=== PATIENT | male | born 1955 | race Caucasian/White ===

== ENCOUNTER 2020-06-18 20:30 | Outpatient (REF) | payer MEDICARE, MEDICAID, SELFPAY | END 2020-06-18 20:31 | disposition home or self-care (01) | LOC: NCHCN 20:30 | PROVIDERS: PCP Internal Medicine; Visit Provider Internal Medicine | DX: L03.119 Cellulitis of unspecified part of limb (principal); M70.21 Olecranon bursitis, right elbow | CPT/HCPCS: 87077; 87070; 87186; 87205 ==

== ENCOUNTER 2020-06-20 22:57 | Outpatient (REF) | payer MEDICARE, MEDICAID, SELFPAY ==
[2020-06-20 22:45] LABS: Creatinine,Urine 88.06 mg/dL
[2020-06-20 22:53] LABS: Total Volume 2200 ml
[2020-06-20 22:54] LABS: Creatinine,24hr Ur 1.94 g/24hr (0.95-2.49)
[2020-06-22 08:44] LABS: Calcium Urine 5.2 mg/dL (See Note); Calcium Urine 24 hr 114 mg/24hrs (100-300); Timed Urine Volume 2200 mL
[2020-06-22 08:52] LABS: Timed Urine Volume 2200 mL; Uric Acid Urine 27.9 mg/dL (See Note); Uric Acid Urine 24hr 614 mg/24hrs (250-750)
[2020-06-23 10:50] LABS: Oxalate, U 0.29 mmol/24 h (0.11-0.46); Oxalate, U 25.5 mg/24 h (9.7 - 40.5); Urine Volume 2200 mL
== END 2020-06-20 22:58 | disposition home or self-care (01) ==
LOC: NCHCN 22:57
PROVIDERS: PCP Internal Medicine; Visit Provider Internal Medicine
DX: Z87.442 Personal history of urinary calculi (principal)
CPT/HCPCS: 81050; 82340; 82570; 83945; 84560

== ENCOUNTER 2020-09-11 23:44 | Outpatient (REF) | payer MEDICARE, MEDICAID, SELFPAY ==
[2020-09-11 19:17] LABS: HGB 15.3 g/dL (13.5-17.5); MCH 29.8 pg (27.0-33.0); MCHC 34.8 % (32.0-36.0); MCV 85.8 fL (80-95); MPV 10.9 fL (8.0-11.0); Platelet Count 269 10^3/uL (130-400); RBC 5.13 10^6/uL (4.36-5.78); RDW-SD 40.7 fL; WBC 13.48 10^3/uL (4.4-10.8)
[2020-09-11 19:30] LABS: Anion Gap 10.8 mmol/L (3-11); BUN 11 mg/dL (7-18); CO2 26.2 mmol/L (21.0-32.0); CREATININE 1.1 mg/dL (0.70-1.30); Calcium 8.9 mg/dL (8.5-10.1); Calculated LDL 121 mg/dL (<100); Chloride 107 mmol/L (98-107); Cholesterol 188 mg/dL (<200); Glucose 95 mg/dL (74-106); HDL Cholesterol 39 mg/dL (40-60); Potassium 4.2 mmol/L (3.5-5.1); Sodium 144 mmol/L (136-145); Triglyceride 141 mg/dL (<150)
[2020-09-11 19:34] LABS: Hemoglobin A1C 5.7 % (<5.7)
== END 2020-09-11 23:45 | disposition home or self-care (01) ==
LOC: NCHCN 23:44
PROVIDERS: PCP Internal Medicine; Visit Provider Nurse Practitioner Family
DX: D64.9 Anemia, unspecified (principal); E66.9 Obesity, unspecified; R79.89 Other specified abnormal findings of blood chemistry
CPT/HCPCS: 80048; 80061; 85027; 83036

== ENCOUNTER 2021-04-05 16:58 | Outpatient (REF) | payer OTHER, MEDICAID, SELFPAY ==
[2021-04-05 18:35] LABS: Bacteria Negative HPF (Negative); C & S Indicated? C&S Done As Ordered; Crystals Negative HPF (Negative); Epithelial Cells Negative HPF (Negative); Mucus Trace (Negative); RBC 0-2 HPF (0-2); WBC Negative HPF (0-5)
== END 2021-04-05 16:59 | disposition home or self-care (01) ==
LOC: NCHCN 16:58
PROVIDERS: PCP Internal Medicine; Visit Provider Physician Assistant
DX: R10.9 Unspecified abdominal pain (principal)
CPT/HCPCS: 81015; 87086

== ENCOUNTER 2022-05-13 14:07 | Outpatient (REF) | payer OTHER, MEDICAID, SELFPAY ==
[2022-05-13 20:21] LABS: ALT 30 U/L (16-63); AST 29 U/L (15-37); Albumin 4.1 g/dL (3.4-5.0); Alkaline Phosphatase 102 U/L (46-116); Anion Gap 7.8 mmol/L (3-11); BUN 10 mg/dL (7-18); Bilirubin, Total 0.4 mg/dL (0.2-1.0); CO2 25.2 mmol/L (21.0-32.0); CREATININE 1.1 mg/dL (0.70-1.30); Calcium 8.7 mg/dL (8.5-10.1); Chloride 109 mmol/L (98-107); Estimated GFR 73.58 (mL/min/1.73m2); Glucose 92 mg/dL (74-106); Potassium 3.8 mmol/L (3.5-5.1); Sodium 142 mmol/L (136-145); Total Protein 7.2 g/dL (6.4-8.2)
[2022-05-13 21:41] LABS: Hemoglobin A1C 5.8 % (<5.7)
[2022-05-15 12:04] LABS: Hepatitis C Ab w Rflx HCV PCR Negative (Negative)
== END 2022-05-13 14:08 | disposition home or self-care (01) ==
LOC: NCHCN 14:07
PROVIDERS: PCP Internal Medicine; Visit Provider Nurse Practitioner Family
DX: I25.2 Old myocardial infarction (principal); R73.03 Prediabetes; I49.9 Cardiac arrhythmia, unspecified; R11.2 Nausea with vomiting, unspecified; Z11.59 Encounter for screening for other viral diseases
CPT/HCPCS: 80053; 86803; 83036

== ENCOUNTER 2023-09-24 12:04 | Outpatient (REF) | payer MEDICARE, MEDICAID, SELFPAY ==
[2023-09-24 19:08] LABS: Abs Immature Grans 0.02 10^3/uL (0.0-0.06); Absolute Basophil Count 0.05 10^3/uL (0.0-0.2); Absolute Eosinophil Count 0.14 10^3/uL (0.0-0.7); Absolute Lymphocyte Count 2.77 10^3/uL (1.2-3.4); Absolute Neutrophil Count 6.27 10^3/uL (1.2-6.7); Basophils % 0.5 %; Eosinophils % 1.4 %; HCT 40.1 % (40.0-50.0); HGB 13.7 g/dL (13.5-17.5); Immature Grans % 0.2 %; Lymphocytes % 27.6 %; MCHC 34.2 % (32.0-36.0); MCV 88 fL (80-95); MPV 10.8 fL (8.0-11.0); Neutrophils % 62.3 %; Platelet Count 239 10^3/uL (130-400); RBC 4.56 10^6/uL (4.36-5.78); RDW 12.7 % (11.8-14.1); WBC 10.05 10^3/uL (4.4-10.8)
[2023-09-25 19:16] LABS: HIV-1/2 Ag & Ab Screen Negative (Negative)
[2023-09-25 19:17] LABS: Hepatitis C Ab w Rflx HCV PCR Negative (Negative)
== END 2023-09-24 12:05 | disposition home or self-care (01) ==
LOC: NCHCN 12:04
PROVIDERS: PCP Internal Medicine; Visit Provider Internal Medicine
DX: Z11.59 Encounter for screening for other viral diseases (principal); L04.3 Acute lymphadenitis of lower limb
CPT/HCPCS: 86803; 87389; 85025

== ENCOUNTER 2024-01-12 14:02 | Outpatient (REF) | payer MEDICARE, MEDICAID, SELFPAY ==
[2024-01-12 20:03] LABS: ALT 24 U/L (16-63); AST 21 U/L (15-37); Albumin 3.9 g/dL (3.4-5.0); Alkaline Phosphatase 109 U/L (46-116); Anion Gap 9.6 mmol/L (3-11); BUN 9 mg/dL (7-18); CO2 25.4 mmol/L (21.0-32.0); Calcium 8.6 mg/dL (8.5-10.1); Calculated LDL 57 mg/dL (<100); Chloride 107 mmol/L (98-107); Cholesterol 121 mg/dL (<200); Estimated GFR 81.47 (mL/min/1.73m2); Glucose 96 mg/dL (74-106); HDL Cholesterol 55 mg/dL (40-60); Potassium 4.2 mmol/L (3.5-5.1); Sodium 142 mmol/L (136-145); Total Protein 6.9 g/dL (6.4-8.2); Triglyceride 48 mg/dL (<150)
== END 2024-01-12 14:03 | disposition home or self-care (01) ==
LOC: NCHCN 14:02
PROVIDERS: PCP Internal Medicine; Visit Provider Nurse Practitioner Family
DX: E78.5 Hyperlipidemia, unspecified (principal)
CPT/HCPCS: 80053; 80061

== ENCOUNTER 2024-09-30 20:23 | Outpatient (REF) | payer MEDICARE, MEDICAID, SELFPAY ==
[2024-10-03 09:59] LABS: PSA, Diagnostic 0.2 ng/mL (<=6.5)
== END 2024-09-30 20:24 | disposition home or self-care (01) ==
LOC: LBN 20:23
PROVIDERS: PCP Nurse Practitioner Family; Visit Provider Nurse Practitioner
DX: N40.0 Benign prostatic hyperplasia without lower urinary tract symptoms (principal)
CPT/HCPCS: 84153

== ENCOUNTER 2024-11-25 00:23 | Outpatient (CLI) | payer MEDICARE, MEDICAID, SELFPAY ==
--- NOTE | 2024-11-25 10:28 | DI.RAD_ITS ---
Exam(s) XR KNEE LT 3V AP,LAT,SALBADOR EXAM: XR KNEE LT 3V AP,LAT,SALBADOR CLINICAL HISTORY: PAIN IN LEFT KNEE M25.562 CHRONIC PAIN G89.29 PERSISTANT LT KNEE PAIN. TECHNIQUE: 2D digital imaging was performed. COMPARISON: No exams were available for comparison FINDINGS: 3 views There is no evidence of fracture but there is a prominent joint effusion signifying internal derangement. There is moderate-advanced narrowing of the medial compartment with degenerative subarticular cysts seen both in the medial tibial plateau and overlying medial femoral condyle. There is preservation of height of the lateral compartment. Patellofemoral compartment also appears relatively unremarkable. 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 Prominent joint effusion. The size of the joint effusion implies that there may be significant additional internal derangement in addition to the osteoarthritic narrowing of the medial compartment. DATA REPOSITORY: RADIATION DOSE DELIVERED:
== END 2024-11-25 00:43 ==
PROVIDERS: PCP Nurse Practitioner Family; Visit Provider Nurse Practitioner Family
DX: M25.562 Pain in left knee (principal)
CPT/HCPCS: 73562

== ENCOUNTER 2025-02-01 17:08 | Outpatient (REF) | payer MEDICARE, MEDICAID, SELFPAY ==
[2025-02-01 21:23] LABS: ALT 18 U/L (16-63); AST 17 U/L (15-37); Albumin 4.0 g/dL (3.4-5.0); Alkaline Phosphatase 92 U/L (46-116); Anion Gap 9.5 mmol/L (3-11); BUN 11 mg/dL (7-18); Bilirubin, Total 0.5 mg/dL (0.2-1.0); CO2 25.5 mmol/L (21.0-32.0); Calcium 8.9 mg/dL (8.5-10.1); Calculated LDL 49 mg/dL (<100); Chloride 106 mmol/L (98-107); Cholesterol 102 mg/dL (<200); Estimated GFR 80.97 (mL/min/1.73m2); Glucose 92 mg/dL (74-106); HDL Cholesterol 42 mg/dL (>or=40); Potassium 4.1 mmol/L (3.5-5.1); Sodium 141 mmol/L (136-145); Total Protein 6.8 g/dL (6.4-8.2); Triglyceride 56 mg/dL (<150)
== END 2025-02-01 17:09 | disposition home or self-care (01) ==
LOC: NCHCN 17:08
PROVIDERS: PCP Nurse Practitioner Family; Visit Provider Nurse Practitioner Family
DX: I21.4 Non-ST elevation (NSTEMI) myocardial infarction (principal)
CPT/HCPCS: 80053; 80061